=== PATIENT | male | born 1945 | race Caucasian/White ===

== ENCOUNTER 2019-01-22 00:06 | Outpatient (CLI) | payer MEDICARE, BC ==
[2019-01-22 14:48] LABS: Hemoglobin 14.9 g/dL (14.0-18.0); Mean Corpuscular HGB CONC 32.8 g/dL (32.0-36.0); Mean Corpuscular Hemoglobin 30.8 pg (27.0-31.0); Mean Corpuscular Volume 93.9 fL (78.0-98.0); Mean Platelet Volume 8.6 fL (7.4-10.4); Platelet Count 160 thou/uL (130-400); RBC Distribution Width 12.1 % (11.5-14.5); Red Blood Cell (RBC) Count 4.85 mill/uL (4.70-6.10)
[2019-01-22 14:55] LABS: PTT 28.6 SEC (22.9-36.1); Prothrombin Time 12.8 SEC (12.0-14.7)
[2019-01-22 15:02] LABS: Anion Gap 15 mmol/L (10-20); BUN (Urea Nitrogen) 16 mg/dL (8.4-25.7); Calc. Creatinine Clearance 0 mL/min (70-130); Calcium 9.3 mg/dL (7.8-10.44); Carbon Dioxide 22 mmol/L (23-31); Chloride 109 mmol/L (98-107); Estimated GFR-MDRD 61; Glucose 98 mg/dL (83-110); Potassium 4.5 mmol/L (3.5-5.1); Sodium 141 mmol/L (136-145)
--- NOTE | 2019-01-22 23:24 | EKG ---
Test Reason : Blood Pressure : / mmHG Vent. Rate : 075 BPM Atrial Rate : 075 BPM P-R Int : 206 ms QRS Dur : 096 ms QT Int : 368 ms P-R-T Axes : 028 002 028 degrees QTc Int : 410 ms Normal sinus rhythm Minimal voltage criteria for LVH, may be normal variant Inferior infarct , age undetermined Anterolateral infarct , age undetermined /Doubtful Abnormal ECG No previous ECGs available Confirmed by SHANNA HERNANDEZ ([id number]) on 01/22/2019 11:23:20 PM Referred By: PEEWEE Confirmed By:SHANNA HERNANDEZ
== END 2019-01-22 00:07 | disposition home or self-care (01) ==
LOC: LABBT 00:06
PROVIDERS: ATTEND Surgery
DX: Z01.818 Encounter for other preprocedural examination (principal); M54.12 Radiculopathy, cervical region; M48.02 Spinal stenosis, cervical region
CPT/HCPCS: 80048; 85027; 85610; 85730; 93005; 93010

== ENCOUNTER 2019-01-29 10:39 | Inpatient (IN) | payer MEDICARE, BC ==
[2019-01-22 13:19] VITALS: BMI 39.9
[2019-01-29] MEDS ORDERED: Thrombin 5000 UNITS/5 ML VIAL ONE (11:41)
[2019-01-29] MEDS ORDERED: Sodium Chloride 0.9% 10 ML ONE (11:41)
[2019-01-29] MEDS ORDERED: Scopolamine 1.5 mg/72 hour Patch ONE (11:56)
[2019-01-29] MEDS ORDERED: Fentanyl 100 MCG/2 ML VIAL ONE ×3 (13:17→16:31)
[2019-01-29] MEDS ORDERED: Meperidine HCl/PF 25 MG/ML VIAL SLOW IVP PRN (15:12)
[2019-01-29] MEDS ORDERED: PACU-Morphine 4MG/ML VIAL SLOW IVP PRN (15:12)
[2019-01-29] MEDS ORDERED: Ondansetron HCl/PF 4 MG/2 ML Vial IVP PRN (15:12)
[2019-01-29] MEDS ORDERED: Morphine Sulfate 2 MG/ML SYRINGE SLOW IVP PRN (15:12)
[2019-01-29] MEDS ORDERED: Promethazine HCl 25 MG/ML VIAL SLOW IVP PRN (15:12)
[2019-01-29] MEDS ORDERED: Promethazine HCl 25 MG/ML VIAL IM PRN (15:12)
[2019-01-29] MEDS ORDERED: HYDROmorphone 2 MG/ML VIAL SLOW IVP PRN (15:12)
[2019-01-29] MEDS ORDERED: Midazolam HCl 2 mg/2 ml Vial ONE (15:40)
[2019-01-29] MEDS ORDERED: Mag-Al 1200 mg/1200 mg/30 ML UDCUP PO PRN (15:45)
[2019-01-29] MEDS ORDERED: HYDROcodone/Acetaminophen 7.5/325 mg Tablet PO PRN (15:45)
[2019-01-29] MEDS ORDERED: Bisacodyl 10 MG SUPP PR PRN (15:45)
[2019-01-29] MEDS ORDERED: Acetaminophen 325 MG TAB PO PRN (15:45)
[2019-01-29] MEDS ORDERED: tiZANidine HCl 4 MG TAB PO PRN (15:45)
[2019-01-29] MEDS ORDERED: Fleet Enema 133 ML BOT PR PRN (15:45)
[2019-01-29] MEDS ORDERED: Promethazine HCl 25 MG/ML VIAL IVPB PRN (15:45)
[2019-01-29] MEDS ORDERED: Milk Of Magnesia 30 ML UDCUP PO PRN (15:45)
[2019-01-29] MEDS: Sodium Chloride 0.9% 1,000 ML IV SCH (18:27)
[2019-01-29] MEDS ORDERED: CEFAZOLIN 2 GM in Premix Bag 1 BAG IVPB SCH (20:00)
[2019-01-29] MEDS: Carvedilol 6.25 MG TAB PO SCH (20:05)
[2019-01-29] MEDS: Gabapentin 300 MG CAP PO SCH (20:06)
[2019-01-29] MEDS ORDERED: Atorvastatin Calcium 40 MG TAB PO SCH (21:00)
[2019-01-29] MEDS: CEFAZOLIN 2 GM in Premix Bag 1 BAG IVPB SCH (21:36)
[2019-01-29] MEDS: traMADol HCl 50 MG TAB PO PRN (22:41)
[2019-01-30] MEDS: CEFAZOLIN 2 GM in Premix Bag 1 BAG IVPB SCH (05:13)
[2019-01-30] MEDS: Sodium Chloride 0.9% 1,000 ML IV SCH (06:38)
[2019-01-30 08:29] VITALS: BP 138/77; TEMP 98.2
[2019-01-30] MEDS: Gabapentin 300 MG CAP PO SCH (08:42)
[2019-01-30] MEDS: Carvedilol 6.25 MG TAB PO SCH (08:43)
[2019-01-30] MEDS ORDERED: Polyethylene Glycol 3350 17 GM Packet PO SCH (09:00)
[2019-01-30] MEDS ORDERED: Levothyroxine Sodium 25 MCG TAB PO SCH (09:00)
--- NOTE | 2019-01-30 09:56 | PRG ---
DATE OF SERVICE: 01/30/2019 Mr. Babin is postoperative day 1 from C5-C6 ACDF. He has done well with 30 mL of drain output. We will remove this. He does have some paresthesias that persist in his hands. I have let him know we will take time for this to improve. His pain is mainly in his neck and interscapular region. He does not have radicular pain into his extremities. He has met criteria for dismissal, and he will be dismissed with followup already arranged. Job ID: [id number]
[2019-01-30] MEDS: traMADol HCl 50 MG TAB PO PRN (10:48)
--- NOTE | 2019-01-30 15:36 | OP ---
DATE OF PROCEDURE: 01/29/2019 [employer] SCIENTIST: Caleb Szymanski PA-C. OPERATING ROOM: OR 12. WOUND CLASSIFICATION: Type 1 wound. PREPROCEDURE DIAGNOSIS: Cervical stenosis with myelopathy and radiculopathy. POSTPROCEDURE DIAGNOSIS: Cervical stenosis with myelopathy and radiculopathy. PROCEDURE PERFORMED: 1. Anterior C5-C6 diskectomy for decompression of spinal cord nerve roots with placement of interbody spacer packed with local bone autograft obtained with same incision allograft, C5-C6, for arthrodesis. 2. Anterior cervical plate and screw fixation, C5-C6. 3. Use of operative microscope for microdissection. DESCRIPTION OF PROCEDURE: After informed consent was obtained from the patient, the patient was brought to the OR. Proper patient, pause, and identification were carried out. He was placed under excellent general endotracheal anesthesia and positioned supine on the OR table. All appropriate points were padded. Right anterior oblique shabbir was drawn out. This region was sterilely cleansed, prepared, and draped. Proper patient, pause, and identification were carried out. The wound was then opened with combination of sharp, monopolar, and blunt dissection, and the longus colli muscles were identified and swept laterally following procession lateral to the tracheoesophageal bundle, medial to the right carotid sheath. Localization film confirmed area of interest. We then performed distraction at C5-C6, and the microscope was brought in for microdissection. A C5-C6 diskectomy was performed. We then turned our attention to placement of the interbody spacer. This was done, this was packed with graft. Microscope was then removed. The anterior cervical plate and screw fixation, C5-C6, then occurred. Final tightening occurred. Copious irrigation and hemostasis occurred throughout. The wound was then closed in anatomic layers over drain. Job ID: [id number]
[2019-01-30] MEDS ORDERED: Losartan 25 MG TAB PO SCH (21:00)
== END 2019-01-30 11:54 | disposition home or self-care (01) | DRG 472 ==
LOC: SDC 10:39 → SURG A 17:46
PROVIDERS: ADMIT Surgery; ATTEND Surgery
PROC: 0RG1070 Fusion of Cervical Vertebral Joint with Autologous Tissue Substitute, Anterior Approach, Anterior Column, Open Approach (ICD-10-PCS; principal; 2019-01-29)
PROC: 0RB30ZZ Excision of Cervical Vertebral Disc, Open Approach (ICD-10-PCS; 2019-01-29)
PROC: 00NW0ZZ Release Cervical Spinal Cord, Open Approach (ICD-10-PCS; 2019-01-29)
PROC: 01N10ZZ Release Cervical Nerve, Open Approach (ICD-10-PCS; 2019-01-29)
DX: M48.02 Spinal stenosis, cervical region (principal); G99.2 Myelopathy in diseases classified elsewhere; M54.12 Radiculopathy, cervical region; Z88.8 Allergy status to other drugs, medicaments and biological substances
CPT/HCPCS: 76000; C1713; C1776; J0131; J0690; J2250; J3010; J3490

== ENCOUNTER 2019-03-11 12:52 | Outpatient (CLI) | payer MEDICARE, BC ==
--- NOTE | 2019-03-11 13:16 | RAD ---
Radiograph cervical spine 4 views: DATE: 03/11/2019 HISTORY: 73-year-old male with cervicalgia. Follow-up surgery. COMPARISON: No prior studies available FINDINGS: Severe hypertrophic bilateral facet DJD at almost every level. No high-grade DJD of atlantoaxial joints. Vertebral body heights are maintained. Anterior plate and screws, ACDF hardware at C5-6. C7 only visualized on swimmer's view, obscured by shoulders on lateral view. Moderately large anterior osteophytes protruding into prevertebral space from endplates at C4-5. The C2-3, C3-4, and C4-5 disc spaces are preserved. Minimal anterolisthesis of C3 on C4, and C4 on C5, due to the facet DJD. No prevertebral soft tissue swelling. IMPRESSION: 1.) Cervical spondylosis consisting of multilevel severe bilateral facet osteoarthrosis at almost kalli ry level. 2.) Status post anterior cervical discectomy and fusion at C5-6.
== END 2019-03-11 12:53 | disposition home or self-care (01) ==
LOC: TBSIIMAG 12:52
PROVIDERS: ATTEND Surgery
DX: M54.2 Cervicalgia (principal); M47.812 Spondylosis without myelopathy or radiculopathy, cervical region; Z98.1 Arthrodesis status
CPT/HCPCS: 72040

== ENCOUNTER 2019-04-26 07:43 | Day surgery (SDC) | payer MEDICARE, BC ==
[2019-04-26] MEDS ORDERED: ceFAZolin Sodium (SDC) 2 GM/100 ML BAG ONE (08:41)
[2019-04-26] MEDS ORDERED: Scopolamine 1.5 mg/72 hour Patch ONE (08:41)
[2019-04-26 09:06] LABS: #Eosinphils 0.2 thou/uL (0.0-0.7); #Lymphocytes 1.5 thou/uL (1.20-3.40); #Monocytes 0.6 thou/uL (0.11-0.59); #Neutrophils 4.4 thou/uL (1.40-6.50); %Basophils 0.3 % (0.0-1.0); %Eosinophils 2.8 % (0.0-10.0); %Lymphocytes 21.7 % (21.0-51.0); %Monocytes 9.5 % (0.0-10.0); %Neutrophils 65.7 % (42.0-75.0); Hemoglobin 14.7 g/dL (14.0-18.0); Mean Corpuscular HGB CONC 33.7 g/dL (32.0-36.0); Mean Corpuscular Hemoglobin 31.9 pg (27.0-31.0); Mean Corpuscular Volume 94.4 fL (78.0-98.0); Platelet Count 150 thou/uL (130-400); Red Blood Cell (RBC) Count 4.62 mill/uL (4.70-6.10); White Blood Cell (WBC) Count 6.7 thou/uL (4.8-10.8)
[2019-04-26 09:18] LABS: PTT 30.4 SEC (22.9-36.1); Prothrombin Time 13.1 SEC (12.0-14.7)
[2019-04-26 09:27] LABS: Anion Gap 12 mmol/L (10-20); BUN (Urea Nitrogen) 16 mg/dL (8.4-25.7); Calc. Creatinine Clearance 132 mL/min (70-130); Calcium 9.5 mg/dL (7.8-10.44); Carbon Dioxide 25 mmol/L (23-31); Chloride 107 mmol/L (98-107); Estimated GFR-MDRD 71; Glucose 95 mg/dL (83-110); Potassium 4.5 mmol/L (3.5-5.1); Sodium 139 mmol/L (136-145)
[2019-04-26] MEDS ORDERED: Sodium Chloride 0.9% 10 ML ONE (09:41)
[2019-04-26] MEDS ORDERED: Thrombin 5000 UNITS/5 ML VIAL ONE (09:41)
[2019-04-26] MEDS ORDERED: Fentanyl 100 MCG/2 ML VIAL ONE ×2 (09:53→15:13)
[2019-04-26] MEDS ORDERED: Rocuronium Bromide 50 MG/5 ML VIAL ONE (12:25)
[2019-04-26] MEDS ORDERED: HYDROmorphone 2 MG/ML VIAL ONE ×2 (13:52→15:13)
[2019-04-26] MEDS ORDERED: Promethazine HCl 25 MG/ML VIAL IM PRN (14:44)
[2019-04-26] MEDS ORDERED: PACU-Morphine 4MG/ML VIAL SLOW IVP PRN (14:44)
[2019-04-26] MEDS ORDERED: Promethazine HCl 25 MG/ML VIAL SLOW IVP PRN (14:44)
[2019-04-26] MEDS ORDERED: HYDROmorphone 2 MG/ML VIAL SLOW IVP PRN (14:44)
[2019-04-26] MEDS ORDERED: Ondansetron HCl/PF 4 MG/2 ML Vial IVP PRN (14:44)
[2019-04-26] MEDS ORDERED: traMADol HCl 50 MG TAB PO PRN (14:51)
[2019-04-26] MEDS ORDERED: Bisacodyl 10 MG SUPP PR PRN (14:51)
[2019-04-26] MEDS ORDERED: Acetaminophen 325 MG TAB PO PRN (14:51)
[2019-04-26] MEDS ORDERED: Morphine 2 MG/ML SYRINGE SLOW IVP PRN (14:51)
[2019-04-26] MEDS ORDERED: Promethazine HCl 25 MG/ML VIAL IM/IV PRN (14:51)
[2019-04-26] MEDS ORDERED: tiZANidine HCl 4 MG TAB PO PRN (14:51)
[2019-04-26] MEDS ORDERED: Mag-Al 1200 mg/1200 mg/30 ML UDCUP PO PRN (14:51)
[2019-04-26] MEDS ORDERED: Fleet Enema 133 ML BOT PR PRN (14:51)
[2019-04-26] MEDS ORDERED: Milk Of Magnesia 30 ML UDCUP PO PRN (14:51)
[2019-04-26] MEDS ORDERED: Polyethylene Glycol 3350 17 GM Packet PO PRN (14:54)
[2019-04-26] MEDS ORDERED: Ketorolac Tromethamine 30 MG/ML VIAL ONE (15:50)
[2019-04-26] MEDS ORDERED: Rocuronium Bromide 10 MG/ML (10ML VIAL) ONE (15:50)
[2019-04-26] MEDS ORDERED: PHENYLEPHRINE-NS 100 MCG/ML 10 ML SYRINGE ONE (15:50)
[2019-04-26] MEDS ORDERED: ePHEDrine 50 MG/ML VIAL ONE (15:50)
[2019-04-26] MEDS ORDERED: Dexamethasone 20 MG/5 ML VIAL ONE (15:50)
[2019-04-26] MEDS ORDERED: Ondansetron PF 4 MG/2 ML Vial ONE (15:50)
[2019-04-26] MEDS ORDERED: PROPOFOL 200 MG/20 ML VIAL ONE (15:50)
[2019-04-26] MEDS ORDERED: Lidocaine 1% PF 5 ML VIAL ONE (15:50)
[2019-04-26] MEDS ORDERED: Glycopyrrolate 0.2 MG/ML 5 ML SYRINGE ONE (15:50)
[2019-04-26] MEDS: Sodium Chloride 0.9% 1,000 ML IV SCH (17:56)
[2019-04-26] MEDS: HYDROcodone/Acetaminophen 7.5/325 mg Tablet PO PRN (18:36)
--- NOTE | 2019-04-26 19:59 | OP ---
DATE OF PROCEDURE: 04/26/2019 LOCATION: OR 11. WOUND CLASSIFICATION: Type 1 wound. AIR SAW OPERATOR: Caleb Szymanski PA-C PREOPERATIVE DIAGNOSIS: Low back and leg pain with lumbar stenosis. POSTOPERATIVE DIAGNOSIS: Low back and leg pain with lumbar stenosis. PROCEDURES PERFORMED: 1. L3-L4, L4-L5 laminectomies, partial facetectomies and foraminotomies. 2. Right L5-S1 hemilaminotomy and foraminotomy. DESCRIPTION OF PROCEDURE: After informed consent was obtained from the patient , the patient was brought to the OR. Proper patient, pause, and identification were carried out. He was placed under excellent general endotracheal anesthesia and positioned prone on the OR table. All appropriate points were padded. We identified the L3, L4, L5, and S1 dorsal spines and lamina. A linear shabbir was made over this region. This area was sterilely cleansed, prepared, and draped. Proper patient, pause, and identification were carried out. The wound was then opened with a combination of sharp, monopolar, and blunt dissection. The L3, L4, L5, and S1 dorsal spines and laminae were exposed. Copious irrigation occurred throughout as did maximizing hemostasis. The wound was then closed in anatomic layers following sprinkling of vancomycin powder. The patient was then emerged from anesthesia. Job ID: [id number] [facility]
[2019-04-26] MEDS: Carvedilol 6.25 MG TAB PO SCH (20:42)
[2019-04-26] MEDS ORDERED: Gabapentin 300 MG CAP PO SCH (21:00)
[2019-04-26] MEDS ORDERED: Atorvastatin Calcium 40 MG TAB PO SCH (21:00)
[2019-04-26] MEDS: CEFAZOLIN 2 GM in Sodium Chloride 0.9% 100 ML IVPB SCH (21:17)
[2019-04-27] MEDS: Sodium Chloride 0.9% 1,000 ML IV SCH (04:24)
[2019-04-27] MEDS ORDERED: Levothyroxine Sodium 25 MCG TAB PO SCH (06:00)
[2019-04-27] MEDS: CEFAZOLIN 2 GM in Sodium Chloride 0.9% 100 ML IVPB SCH (06:07)
[2019-04-27] MEDS: HYDROcodone/Acetaminophen 7.5/325 mg Tablet PO PRN ×2 (06:57→13:36)
[2019-04-27 07:57] VITALS: TEMP 97.9
[2019-04-27] MEDS ORDERED: Prevnar 13-Val Conj/PF 0.5 ML SYRINGE IM ONE (09:00)
[2019-04-27] MEDS ORDERED: Non-Formulary Item 1 EACH (Ascorbic Acid [Vitamin C] 1,000 MG) PO SCH (09:00)
[2019-04-27] MEDS ORDERED: Ascorbic Acid 500 mg Chewable Tablet PO SCH (09:00)
[2019-04-27] MEDS: Carvedilol 6.25 MG TAB PO SCH (09:09)
--- NOTE | 2019-04-27 14:45 | PRG ---
DATE OF SERVICE: 04/27/2019 Mr. Babin is postoperative day 1 from lumbar decompression. He is doing well with resolution in his leg pain. He does have some incisional pain as expected, but feels as if he is doing very well. His strength is good in his lower extremities. We will plan for dismissal today. Job ID: [id number]
[2019-04-27 14:52] VITALS: BP 90/54
[2019-04-27 15:56] VITALS: BMI 39.4
[2019-04-27] MEDS ORDERED: Losartan 25 MG TAB PO SCH (21:00)
--- NOTE | 2019-04-29 08:58 | EKG ---
Test Reason : PREOP Blood Pressure : / mmHG Vent. Rate : 070 BPM Atrial Rate : 070 BPM P-R Int : 218 ms QRS Dur : 096 ms QT Int : 392 ms P-R-T Axes : 018 003 035 degrees QTc Int : 423 ms Sinus rhythm with 1st degree A-V block Inferior infarct (cited on or before 22-JAN-2019) Abnormal ECG When compared with ECG of 22-JAN-2019 14:01, Criteria for Anterior infarct are no longer Present Criteria for Anterolateral infarct are no longer Present Confirmed by DR. Carissa FITCH ([id number]) on 04/29/2019 8:57:49 AM Referred By: PEEWEE Confirmed By:DR. Carissa FITCH
== END 2019-04-27 15:57 | disposition home or self-care (01) ==
LOC: SDC 07:43 → SURG A 15:52 → SDC 04-27 15:57
PROVIDERS: ATTEND Surgery
PROC: 01NB0ZZ Release Lumbar Nerve, Open Approach (ICD-10-PCS; principal; 2019-04-26)
DX: M48.061 Spinal stenosis, lumbar region without neurogenic claudication (principal); M54.16 Radiculopathy, lumbar region; Z79.82 Long term (current) use of aspirin; Z79.899 Other long term (current) drug therapy; Z88.5 Allergy status to narcotic agent; Z88.8 Allergy status to other drugs, medicaments and biological substances
CPT/HCPCS: 36415; 76000; 80048; 85025; 85610; 85730; 93005; 93010; J0690; J1100; J1170; J1885; J2001; J2405; J2704; J3010; J3370; J3490